=== PATIENT | male | born 1985 | race Caucasian/White ===

== ENCOUNTER 2024-11-21 01:21 | Day surgery (SDC) | payer OTHER, SELFPAY ==
[2024-11-12 17:11] VITALS: BMI 23.1
--- NOTE | 2024-11-12 17:13 | SUR.PREOP ---
Report to the Outpatient Waiting Room, entrance under the green pavilion located off [facility], at time ___1030__ on date ____11/21/24___. Planned Procedure Time: ____1230____.? Time changes happen often and if your time is changed the preop area will call you the afternoon before. - You and your visitor will be asked to self-screen and do not enter if you have any COVID symptoms. Please call surgeon if you need to reschedule. - A mask is optional within the hospital at this time. Patients may have clear liquids (water, carbonated beverages, clear teas, apple juice) until 3 hours prior to surgery with a maximum of 20 ounces. - No food from midnight until time of surgery and no smoking, or chewing tobacco (or any form of nicotine). No chewing gum, candy or mints. - Infants may have breast milk until 4 hours before surgery, infant formula 6 hours prior to surgery. - Children will be allowed to drink immediately following surgery.? If applicable, please bring a bottle or sippy cup to assist with drinking. Juice, water, soda, and popsicles are readily available.? For infants on formula, please bring formula the day of surgery.? Pacifiers are allowed. Take only the following medications with a SIP of water on the morning of surgery: N/A DO NOT STOP ANY OF YOUR OTHER PRESCRIPTION MEDICATIONS PRIOR TO SURGERY EXCEPT THE FOLLOWING Hold all vitamins and supplements for 3 days per anesthesiologist. Medications to discontinue per physician N/A Date to take last dose N/A Please no make-up, nail estonian, hairspray, perfume, deodorant, or body powder the day of surgery.? No jewelry (including any body piercings) or valuables the day of surgery, leave them at home.? Please take a shower or bath the night before, or the morning of, surgery with an antibacterial soap.? Wear comfortable, loose fitting clothing.? Children are encouraged to wear pajamas. - Jewelry must be removed prior to entering the operating room.? Rings and piercings that are not removed may be cut off. - The hospital will not accept responsibility for valuables.? - Please leave all valuables, including medications, at home the day of surgery. If you are going home after surgery, a licensed cdl bulk driver must drive you home.? - NO public transportation without another adult if you receive anesthesia. - We recommend that an adult stay with you for 24 hours following discharge. - We also recommend that you do not drive, make important decision, drink alcoholic beverages, or take any drugs that were not prescribed by your health care provider for at least 24 hours after your discharge time. For Pediatric surgeries, we recommend two adults accompany the child home. Follow any additional instructions given to you from your surgeon. Telephone instructions given to Spencer____and asked if any additional questions and then verbalized understanding. Patient advised to call surgeon office or pre surgery nurse liaison [phone] if any additional questions.
[2024-11-21] VITALS (7 sets, daily range): BP systolic 114–136; BP diastolic 45–80; PULSE 53–80; RESP 12–16; TEMP 36.1–36.4; O2SAT 98–100
--- OUTSIDE RECORDS SUMMARY | 2024-11-21 01:25 | XMS_ITS | Clinical Summary ---
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 07/03/2024 Resolved Problems Problem Noted Date Diagnosed Date Resolved Date Osteoarthritis of right AC (acromioclavicular) joint 09/22/2022 07/03/2024 Family History Relation Status Comments Father Alive Mother Alive Social History Tobacco Use Types Packs/Day Years Used Date Smoking Tobacco: Never Smokeless Tobacco: Never Tobacco Cessation:Counseling Given: Not Answered Alcohol Use Standard Drinks/Week Comments Yes 8.3 (1 standard drink = 0.6 oz p ure alcohol) Sex and Gender Information Value Date Recorded Sex Assigned at Male 06/05/2024 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 Legal Sex Male 5:51 PM BIOMEDICAL ENGINEERING PROFESSOR Gender Identity Not on file Sexual Orientation Not on file Last Filed Vital Signs Vital Sign Reading Time Taken Comments Blood Pressure 143/97 06/08/2024 6:04 PM BIOMEDICAL ENGINEERING PROFESSOR Pulse 64 06/08/2024 6:04 PM BIOMEDICAL ENGINEERING PROFESSOR Temperature 36.6 C (97.8 F) 06/08/2024 4:25 PM BIOMEDICAL ENGINEERING PROFESSOR Respiratory Rate 18 06/08/2024 4:25 PM BIOMEDICAL ENGINEERING PROFESSOR Oxygen Saturation 100% 06/08/2024 6:04 PM BIOMEDICAL ENGINEERING PROFESSOR Inhaled Oxygen Concentration - - Weight 77.1 kg (170 lb) 07/03/2024 10:28 AM BIOMEDICAL ENGINEERING PROFESSOR Height 185.4 cm (6' 1) 07/03/2024 10:28 AM BIOMEDICAL ENGINEERING PROFESSOR Body Mass Index 22.43 07/03/2024 10:28 AM BIOMEDICAL ENGINEERING PROFESSOR Plan of Treatment Health Maintenance Due Date Last Done Comments Annual Physical 08/08/1986 Hepatitis C 08/08/2001 Hepatitis B Vaccines (1 of 3 - 19+ 3-dose series) 08/08/2002 COVID-19 Vaccine (1 - 2023-2 5 season) 2024 DTaP, Tdap and Td Vaccines ( 2 - Td or Tdap) 08/11/2026 08/11/2016 HPV Vaccines Aged Out No longer eligi ble based on patient's age to complete this topic Meningococcal B Vaccine Aged Out No l onger eligible based on patient's age to complete this topic Meningococcal Vaccine Aged Out No deirdre flory eligible based on patient's age to complete this topic Pneumococcal Vaccine: Pediat rics (0 to 5 Years) and At-Risk Patients (6 to 49 Years) Aged Out No longer eligi ble based on patient's age to complete this topic RSV Immunizations Under 20 Months Aged Out No longer eligible based on patient's age to complete this topic Insurance [employer] Care Teams Clinical Nurse Specialist Relationship Specialty Start Date End Date Larry Kraus MD [id number] [place] [id number] PCP - General FAMILY PRACTICE 07/12/19
--- NOTE | 2024-11-21 07:25 | WPDHPUPDATE1 ---
History and Physical Update Update Date/Time: 11/21/24 07:25 History and Physical has been reviewed, including an updated exam of the patient. There are NO changes in the patient's condition. Risks, benefits, and alternatives have been discussed and questions answered. Patient agrees to proceed with procedure.
[2024-11-21] MEDS: ACETAMINOPHEN 500 MG TABLET 1000 MG PO (10:50)
[2024-11-21] MEDS: KETOROLAC 15 MG/ML VIAL (*BKC) IV PUSH (10:55)
--- NOTE | 2024-11-21 12:05 | P.PNAN_ITS ---
Anes - Initial Pre Proc Eval Procedure: Operation Date: 11/21/24 12:30 Proposed Procedures p Left Shoulder Open Distal Clavicle Excision - Mynor Erickson MD Date/Time: 11/21/24 12:05 Surgeon: Mynor Erickson MD Pre Op Diagnosis: Lt Shoulder AC Joint Arthritis Patient Data Age: 39 Gender: M Height: 1.85 m Weight: 79.25 kg Last Vital Signs Temp 36.4 C L 11/21/24 10:45 Pulse 55 L 11/21/24 10:45 Resp 16 11/21/24 10:45 BP 120/60 11/21/24 10:45 Pulse Ox 100 11/21/24 10:45 O2 Del Method Room Air 11/21/24 10:45 Allergies Allergy/AdvReac Type Severity Reaction Status Date / Time No Known Allergies Allergy Verified 11/21/24 10:42 Home Medications ?Medication ?Instructions ?Recorded ?Confirmed ?Type No Home Medications 07/22/24 11/12/24 History Patient hx anesthesia problems: none Family hx anesthesia problems: none Results Review: All pre-operative results and documents have been reviewed as part of the pre- operative evaluation. [facility] Past Medical History Medical History Osteoarthritis of right AC (acromioclavicular) joint Kidney stone Fracture of wrist Surgical History Surgical History History of repair of anterior cruciate ligament Rt Knee: 2005; Lt Knee: 2009 History of shoulder surgery (~11/2022) Open Distal Clavicle Excision - RIGHT Social History Social History Smoking status: Never smoker Alcohol intake: never Substance use type: does not use Do You Feel Safe in your Home?: Yes Lack of Transportation: No Lack of Food: Never True Current Housing: I Have Housing Concerned About Future Housing: No Difficulty Paying Gas/Electric Bills: No Difficulty Paying for Meds: No Currently Unemployed: No Education: Bachelor's Degree Difficulty w/ Childcare or Family Care: No Living arrangements: with family Anes - Eval Final PreProcedure Day of Procedure 11/21/24 12:05 Patient weight: normal Heart: regular rate and rhythm Lungs: clear to auscultation Airway: Mallampati scale class 1 Neurological: alert and oriented Last oral intake: >/= 8 hours ASA classification: I Emergent: no Anesthetic plan: proceed Anesthesia type and monitoring: general ETT and standard monitoring Results Review: All pre-operative results and documents have been reviewed as part of the pre- operative evaluation. Informed Consent: The patient's anesthetic plan and its attendant risks and benefits were discussed with the patient/family/POA. Questions were solicited and answers provided to the satisfaction of the patient/family/POA.
[2024-11-21] MEDS: ceFAZolin 2 GM in SODIUM CHLORIDE 0.9% IV 50 ML 100 ML IVPB (12:46)
[2024-11-21] MEDS: BUPIVACAINE/EPINEPHRINE 0.5% 50 ML VIAL 30 ML INFILTRATE (13:33)
--- NOTE | 2024-11-21 14:09 | P.OP_ITS ---
Procedure Note - Detailed Date of Procedure 11/21/24 Pre-op Diagnosis Lt Shoulder AC Joint Arthritis Post-op Diagnosis Same Procedure Performed Open distal clavicle excision, left. Surgeon Mynor Erickson MD Anesthesia General and Local (20 mL 0.5% Sensorcaine with epi.) Findings The shoulder demonstrated no abnormal findings on examination under anesthesia. Irregularity at the distal clavicle was confirmed. A segment approximately 7-10 mm was resected. Description of Procedure A general anesthetic was administered. The shoulder was prepped and draped in usual sterile fashion. A longitudinal incision was created over the distal end of the clavicle. Dissection was brought down to the superior fascia and capsule of the joint. This was incised longitudinally along the length of the bone. Approximately 15 mm of distal clavicle was exposed. Hohmann retractors were placed for protection resection was carried out after measurement of approximately 7-10 millimeters. Meticulous hemostasis was maintained. The overlying periosteum and superior ligaments were closed with interrupted #0 Vicryl suture. The subcutaneous tissues were closed with 3-0 Monocryl suture and 4-0 Monocryl suture. Steri-Strips were placed on the skin. Sterile dressin g was applied with a sling. The patient was extubated and brought to the recovery room in stable condition. There were no complications. Estimated Blood Loss 20 Drains No Packing No Pathology None sent Complications No immediate complications Condition Stable Disposition PACU [facility] Billing Surgery - Charge Forward: Surgery Billing
[2024-11-21] MEDS: LACTATED RINGERS 1,000 ML 30 ML IV CONT (14:10)
== END 2024-11-21 16:00 | disposition home or self-care (01) ==
PROVIDERS: PCP Family Medicine; Visit Provider Orthopaedic Surgery
PROC: (CPT 23420; principal; 2024-11-21 12:30)
DX: M19.011 Primary osteoarthritis, right shoulder (principal); Z98.890 Other specified postprocedural states; Z87.442 Personal history of urinary calculi
CPT/HCPCS: 23120; J0690; A9270; J1100; J1885; J2250; J2405; J2704; J3010; J7120